=== PATIENT | female | born 1980 | race Hispanic/Latino ===

== ENCOUNTER 2017-10-18 16:27 | Emergency (ER) | payer BC ==
[2017-10-18 17:16] VITALS: TEMP 98
--- NOTE | 2017-10-18 18:17 | CT ---
PROCEDURE: CT HEAD WITHOUT CONTRAST. HISTORY: Dizziness COMPARISON: None available. TECHNIQUE: Axial computed tomography images were obtained through the head/brain without intravenous contrast. Coronal and sagittal reconstructed images. Radiation dose: Total exam DLP = 946.91 mGy-cm. This CT exam was performed using one or more of the following dose reduction techniques: Automated exposure control, adjustment of the mA and/or kV according to patient size, and/or use of iterative reconstruction technique. FINDINGS: HEMORRHAGE: No intracranial hemorrhage. BRAIN: No mass effect or edema. No atrophy or chronic microvascular ischemic changes. VENTRICLES: Unremarkable. No hydrocephalus. CALVARIUM: Unremarkable. PARANASAL SINUSES: Unremarkable as visualized. No significant inflammatory changes. MASTOID AIR CELLS: Unremarkable as visualized. No inflammatory changes. OTHER FINDINGS: Benign Benign-appearing calcifications within the pineal gland. IMPRESSION: No acute intracranial abnormalities. No significant findings to account for the clinical presentation. Enlarged, partially calcified pineal gland, elective followup advised. MRI would be the recommended procedure of choice.
[2017-10-18 18:27] LABS: BASO # 0.03 K/mm3 (0.0-2.0); BASO % 0.5 % (0.0-3.0); EOS # 0.2 (0.0-0.7); EOS % 2.8 % (1.5-5.0); GRAN # 3.34 (1.4-6.5); GRAN % 59.3 % (50.0-68.0); HEMOGLOBIN 13.5 g/dL (12.0-16.0); LYMPH # 1.7 (1.2-3.4); LYMPH % 29.6 % (22.0-35.0); MEAN CELL VOLUME 92.9 fl (80.0-105.0); MEAN CORPUSCULAR HEMOGLOBIN 31.1 pg (25.0-35.0); MEAN CORPUSCULAR HGB CONC 33.5 g/dl (31.0-37.0); MEAN PLATELET VOLUME 10.7 fl (7.0-11.0); MONO # 0.4 (0.1-0.6); MONO % 7.8 % (1.0-6.0); RBC 4.34 10^6/uL (3.5-6.1); RED CELL DISTRIBUTION WIDTH 12.1 % (11.5-14.5); WHITE BLOOD COUNT 5.6 10^3/ul (4.5-11.0)
[2017-10-18 18:29] LABS: ALB/GLOB RATIO 1.6 (1.1-1.8); ALBUMIN 4.3 g/dL (3.0-4.8); ALT/SGPT 36 U/L (7-56); AST/SGOT 29 U/L (14-36); BLOOD UREA NITROGEN 10 mg/dL (7-21); CALCIUM 9.8 mg/dL (8.4-10.5); GFR AFRICAN-AMERICAN > 60; GFR NON-AFRICAN AMERICAN > 60
--- NOTE | 2017-10-18 18:48 | ED PDOC ---
Arrival/HPI - General Chief Complaint: Weakness/Neurological Deficit Time Seen by Provider: 10/18/17 17:19 Past Medical History - Infectious Disease Hx of Infectious Diseases: None - Pulmonary Hx Asthma: Yes - Psychiatric Hx Substance Use: No Family/Social History Family/Social History: No Known Family HX Smoking Status: Never Smoked Hx Alcohol Use: No Hx Substance Use: No Allergies/Home Meds Allergies/Adverse Reactions: Allergies No Known Allergies Allergy (Verified 10/18/17 17:16) Home Medications: Home Meds Medication Instructions Recorded Confirmed Unobtainable 10/18/17 10/18/17 Physical Exam Vital Signs Temp Pulse Resp BP Pulse Ox 10/18/17 17:12 98 F 80 18 129/72 98 Medical Decision Making ED Course and Treatment: 10/18/17 18:46 with headache but wants to go home. Studies negative. Typical migraine sx. - Lab Interpretations Lab Results: 10/18/17 17:37 10/18/17 17:37 Lab Results 10/18/17 17:37: Sodium 141, Potassium 3.8, Chloride 104, Carbon Dioxide 25, Anion Gap 15, BUN 10, Creatinine 0.6 L, Est GFR ( Amer) > 60, Est GFR ( Non-Af Amer) > 60, Random Glucose 95, Calcium 9.8, Total Bilirubin 0.5, AST 29, ALT 36, Alkaline Phosphatase 55, Total Protein 7.0, Albumin 4.3, Globulin 2.8, Albumin/Globulin Ratio 1.6 10/18/17 17:37: WBC 5.6, RBC 4.34, Hgb 13.5, Hct 40.3, MCV 92.9, MCH 31.1, MCHC 33.5, RDW 12.1, Plt Count 184, MPV 10.7, Gran % 59.3, Lymph % (Auto) 29.6, [place] % (Auto) 7.8 H, Eos % (Auto) 2.8, Baso % (Auto) 0.5, Gran # 3.34, Lymph # (Auto ) 1.7, [place] # (Auto) 0.4, Eos # (Auto) 0.2, Baso # (Auto) 0.03 - RAD Interpretation Radiology Orders: 10/18/17 17:23 HEAD W/O CONTRAST [CT] Stat - Medication Orders Current Medication Orders: Discontinued Medications Ketorolac Tromethamine (Toradol) 60 mg IM STAT STA Stop: 10/18/17 18:27 Disposition/Present on Arrival - Present on Arrival Any Indicators Present on Arrival: No History of DVT/PE: No History of Uncontrolled Diabetes: No Urinary Catheter: No History of Decub. Ulcer: No History Surgical Site Infection Following: None - Disposition Have Diagnosis and Disposition been Completed?: Yes Diagnosis: Migraine Disposition: HOME/ ROUTINE Disposition Time: 18:50 Patient Plan: Discharge Patient Problems: Current Active Problems Problem Status Onset Migraine Acute Condition: STABLE Referrals: Glendy Guerra MD [Primary Care Provider] - Follow up with primary
[2017-10-18 19:05] VITALS: BP 127/80; PULSE 76; RESP 17; O2SAT 99
== END 2017-10-18 19:05 | disposition home or self-care (01) ==
LOC: ED 16:27
DX: G43.909 Migraine, unspecified, not intractable, without status migrainosus (principal)
CPT/HCPCS: 70450; 80053; 85025; 96372; 99285; J1885